=== PATIENT | female | born 2000 | race Caucasian/White ===

== ENCOUNTER 2020-11-07 21:53 | Emergency (ER) | payer BC ==
[2020-11-07 21:58] VITALS: BP 125/71; PULSE 113; RESP 18; TEMP 98.4
[2020-11-07] MEDS ORDERED: ACETAMINOPHEN TAB 500 MG TAB PO STA (22:07)
[2020-11-07] MEDS ORDERED: IBUPROFEN 600 MG STARTER PACK 4 TAB BTL PO STA (22:07)
--- NOTE | 2020-11-07 22:33 | XR ---
EXAMINATION TYPE: XR foot complete RT DATE OF EXAM: 11/07/2020 COMPARISON: NONE HISTORY: Ankle pain TECHNIQUE: 3 views FINDINGS: Metatarsals are intact. There is nondisplaced transverse fracture across the base of the fi fth metatarsal. The toes appear intact. The hindfoot is intact. IMPRESSION: Acute transverse fracture base of the fifth metatarsal.
--- NOTE | 2020-11-07 22:54 | ED ---
Lower Extremity Injury HPI - General Chief Complaint: Extremity Injury, Lower Stated Complaint: RT ankle pain Time Seen by Provider: 11/07/20 22:03 Source: patient Mode of arrival: wheelchair Limitations: no limitations - History of Present Illness Initial Comments: 19 year-old female patient presents to the emergency department for evaluation of right foot pain. Patient states about an hour prior to arrival she was walking and her foot slipped out of her shoe. States that her foot rolled laterally. States she has been having pain and swelling to the right lateral foot since. Denies any ankle pain. Is numbness or tingling to the foot. Denies falling or sustaining any other injuries with this. Denies taking any medication for pain. Denies chance of . Patient denies any headache, neck pain, back pain, chest pain, shortness of breath, dizziness, weakness, abdominal pain, nausea, vomiting, or difficulties with bowel movements or ur ination. - Related Data Previous Rx's Medication Instructions Recorded Ibuprofen [Motrin] 600 mg PO Q8HR PRN #30 tab 11/07/20 Allergies Allergy/AdvReac Type Severity Reaction Status Date / Time No Known Allergies Allergy Verified 11/07/20 22:10 Review of Systems ROS Statement: Those systems with pertinent positive or pertinent negative responses have been documented in the HPI. ROS Other: All systems not noted in ROS Statement are negative. Past Medical History Past Medical History: No Reported History History of Any Multi-Drug Resistant Organisms: None Reported Past Surgical History: Tonsillectomy Past Psychological History: No Psychological Hx Reported Smoking Status: Never smoker Past Alcohol Use History: Occasional General Exam Limitations: no limitations General appearance: alert, in no apparent distress, other (This is a well developed, well nourished adult female in no acute distress. Vital signs upon presentation are temperature 98.4F, pulse 113, respirations 18, blood pressure 125/71, pulse ox 100% on room air.) Eye exam: Present: normal appearance, PERRL, EOMI. Absent: scleral icterus, conjunctival injection, periorbital swelling ENT exam: Present: normal exam, normal oropharynx, mucous membranes moist Respiratory exam: Present: normal lung sounds bilaterally. Absent: respiratory distress, wheezes, rales, rhonchi, stridor Cardiovascular Exam: Present: regular rate, normal rhythm, normal heart sounds. Absent: systolic murmur, diastolic murmur, rubs, gallop, clicks Extremities exam: Present: full ROM, normal capillary refill, other (There is soft tissue swelling and tenderness over the proximal fifth metatarsal. Skin to the foot is otherwise pink, warm, dry. Cap refill less than 3 seconds. Pedal and posttibial pulses 2+ and equal bilaterally.). Absent: normal inspection, tenderness, pedal edema, joint swelling, calf tenderness Neurological exam: Present: alert, oriented X3, CN II-XII intact Psychiatric exam: Present: normal affect, normal mood Skin exam: Present: warm, dry, intact, normal color. Absent: rash Course Vital Signs 11/07/20 21:55 Temperature 98.4 F Pulse Rate 113 H Respiratory 18 Rate Blood Pressure 125/71 O2 Sat by Pulse 100 Oximetry Medical Decision Making - Medical Decision Making 19-year-old female patient presents to the emergency department today for evaluation of right foot pain. Physical examination did reveal soft tissue swelling and tenderness over the right proximal fifth metatarsal. Neurovascular status is intact. X-rays were obtained and did show a transverse fracture to the base of the right fifth metatarsal. Patient was placed in an OCL splint. She is instructed to remain nonweightbearing. She is given prescription for crutches and ibuprofen. She is educated regarding rest, ice, elevation. She is instructed to follow-up with human services program specialist tomorrow. Return parameters were discussed in detail. She verbalizes understanding and agrees with this plan. Case discussed with my attending Dr. Treviño. - Radiology Data Radiology results: report reviewed, image reviewed 3 views of the right foot are obtained. Report reviewed in its entirety. Impression by Dr. San shows acute transverse fracture base of the fifth metatarsal Disposition Clinical Impression: Nondisplaced fracture of fifth right metatarsal bone Disposition: HOME SELF-CARE Condition: Good Instructions (If sedation given, give patient instructions): Toe Fracture (ED), Splint Care (ED) Additional Instructions: Follow-up with human services program specialist for further evaluation as soon as possible, call first thing in the morning for an appointment. Do not remove splint until instructed to do so by orthopedics. Do not bear any weight on the right foot. Take medications as directed for pain. Rest, ice, elevate the foot. Return to the emergency department for any new, worsening, or concerning symptoms. Prescriptions: Ibuprofen [Motrin] 600 mg PO Q8HR PRN #30 tab PRN Reason: Pain Is patient prescribed a controlled substance at d/c from ED?: No Referrals: Demetrio Sow MD [Primary Care Provider] - 1-2 days Sam Engle DO [Doctor of Osteopathic Medicine] - 1-2 days Time of Disposition: 22:54
== END 2020-11-07 23:15 | disposition home or self-care (01) ==
LOC: EC 21:53
DX: S92.354A Nondisplaced fracture of fifth metatarsal bone, right foot, initial encounter for closed fracture (principal); Z90.09 Acquired absence of other part of head and neck; X50.9XXA Other and unspecified overexertion or strenuous movements or postures, initial encounter; Y93.01 Activity, walking, marching and hiking

== ENCOUNTER 2024-01-26 11:28 | Emergency (ER) | payer BC ==
--- NOTE | 2024-01-26 12:23 | ED ---
Abdominal Pain HPI - General Chief Complaint: Abdominal Pain Stated Complaint: Abd Pain, 19 wks Time Seen by Provider: 01/26/24 11:48 Source: patient, RN notes reviewed Mode of arrival: ambulatory Limitations: no limitations - History of Present Illness Initial Comments: 23-year-old G1, P0 female at 19 weeks gestation presenting for suprapubic cramping. States that 4 days ago she had a brief episode of cramping in the suprapubic area after urination. She describes the incident as "feeling like her muscles were pulling". She had a similar brief episode this morning but states it was more mild. She also noticed a small amount of blood on the toilet paper this morning when she wiped. She has had no complications so far in the , is following with an OB at [facility], however she states she has a history of fatty liver disease and is following with a physician for this to monitor it during . Denies fever, nausea, vomiting, dysuria, urinary urgency. - Related Data Previous Rx's Medication Instructions Recorded Ibuprofen [Motrin] 600 mg PO Q8HR PRN #30 tab 11/07/20 Allergies Allergy/AdvReac Type Severity Reaction Status Date / Time No Known Allergies Allergy Verified 01/26/24 11:37 Review of Systems ROS Statement: Those systems with pertinent positive or pertinent negative responses have been documented in the HPI. ROS Other: All systems not noted in ROS Statement are negative. Past Medical History Past Medical History: No Reported History History of Any Multi-Drug Resistant Organisms: None Reported Past Surgical History: Tonsillectomy Past Psychological History: No Psychological Hx Reported Smoking Status: Never smoker Past Alcohol Use History: Occasional Past Drug Use History: None Reported General Exam Limitations: no limitations General appearance: alert, in no apparent distress Respiratory exam: Present: normal lung sounds bilaterally. Absent: respiratory distress, wheezes, rales, rhonchi, stridor Cardiovascular Exam: Present: regular rate, normal rhythm, normal heart sounds. Absent: systolic murmur, diastolic murmur, rubs, gallop, clicks GI/Abdominal exam: Present: soft, normal bowel sounds. Absent: distended, tenderness, guarding, rebound, rigid Neurological exam: Present: alert, oriented X3, CN II-XII intact Psychiatric exam: Present: normal affect, normal mood Skin exam: Present: warm, dry, intact, normal color. Absent: rash Course Vital Signs 01/26/24 01/26/24 11:34 16:30 Temperature 98.2 F 98.2 F Pulse Rate 131 H 80 Respiratory 18 18 Rate Blood Pressure 135/84 135/84 O2 Sat by Pulse 100 100 Oximetry Medical Decision Making - Medical Decision Making Was pt. sent in by a medical professional or institution (, SHAI, SHADE MATCHER, urgent care, hospital, or long term...) When possible be specific @ -No Did you speak to anyone other than the patient for history (EMS, parent, family, police, friend...)? What history was obtained from this source @ -No Did you review nursing and triage notes (agree or disagree)? Why? @ -I reviewed and agree with nursing and triage notes Were old charts reviewed (outside hosp., previous admission, EMS record, old EKG, old radiological studies, urgent care reports/EKG's, long term records)? Report findings @ -No old charts were reviewed Differential Diagnosis (chest pain, altered mental status, abdominal pain women, abdominal pain men, vaginal bleeding, weakness, fever, dyspnea, syncope, headache, dizziness, GI bleed, back pain, seizure, CVA, palpatations, mental health, musculoskeletal)? @ -Differential Vaginal Bleeding: Spontaneous , threatened , molar , ectopic , bloody show, incompetent cervix, abruptioplacenta, placenta previa, uterine rupture, dysfunctional uterine bleeding, hemorrhage, uterine fibroids, this is not meant to be an all-inclusive list. EKG interpreted by me (3pts min.). @ -None X-rays interpreted by me (1pt min.). @ -None done CT interpreted by me (1pt min.). @ -None done U/S interpreted by me (1pt. min.). @ -Ultrasound revealed single live gestation estimating age 18 weeks 3 days with low-lying placenta What testing was considered but not performed or refused? (CT, X-rays, U/S, labs)? Why? @ -None What meds were considered but not given or refused? Why? @ -None Did you discuss the management of the patient with other professionals (professionals i.e. , SHAI, SHADE MATCHER, lab, RT, psych nurse, director social service, motorcoach driver, teacher, sheriffs officer, home health care case manager)? Give summary @ -No Was smoking cessation discussed for >3mins.? @ -No Was critical care preformed (if so, how long)? @ -No Were there social determinants of health that impacted care today? How? (Homelessness, low income, unemployed, alcoholism, drug addiction, transportation, low edu. Level, literacy, decrease access to med. care, fpc, rehab)? @ -No Was there de-escalation of care discussed even if they declined (Discuss DNR or withdrawal of care, Hospice)? DNR status @ -No What co-morbidities impacted this encounter? (DM, HTN, Smoking, COPD, CAD, Cancer, CVA, ARF, Chemo, Hep., AIDS, mental health diagnosis, sleep apnea, morbid obesity)? @ -None Was patient admitted / discharged? Hospital course, mention meds given and route, prescriptions, significant lab abnormalities, going to OR and other pertinent info. @ -Patient was discharged. Patient was seen and evaluated for abdominal cramping and vaginal bleeding at 19 weeks gestation. Ultrasound revealed single live gestation estimated 18 weeks 3 days with low-lying placenta. Lab work largely unremarkable, beta-hCG level compatible with estimated gestational age. Blood type is O-. Urine is unremarkable. Discussed diagnosis of threatened with patient. Advised close follow-up with OB in the next 48 hours for repeat beta hCG testing. RhoGAM injection given as patient is O-. Strict return/alarm symptoms discussed with patient and patient shows understanding and agrees to plan. Patient is discharged in stable condition. Case discussed with Dr. Hernandez. Undiagnosed new problem with uncertain prognosis? @ -No Drug Therapy requiring intensive monitoring for toxicity (Heparin, Nitro, Insulin, Cardizem)? @ -No Were any procedures done? @ -No Diagnosis/symptom? @ -Threatened Acute, or Chronic, or Acute on Chronic? @ -Acute Uncomplicated (without systemic symptoms) or Complicated (systemic symptoms)? @ -Uncomplicated Side effects of treatment? @ -No Exacerbation, Progression, or Severe Exacerbation? @ -No Poses a threat to life or bodily function? How? (Chest pain, [place], [place], pneumonia, PE, COPD, DKA, ARF, appy, cholecystitis, CVA, Diverticulitis, Homicidal, Suicidal, threat to staff... and all critical care pts) @ -No - Lab Data Result diagrams: 01/26/24 12:42 01/26/24 12:42 Lab Results 01/26/24 01/26/24 01/26/24 Range/Units 12:20 12:40 12:42 WBC 11.6 H (3.8-10.6) k/uL RBC 4.50 (3.80-5.40) m/uL Hgb 12.1 (11.4-16.0) gm/dL Hct 36.2 (34.0-46.0) % MCV 80.5 (80.0-100.0) fL MCH 27.0 (25.0-35.0) pg MCHC 33.5 (31.0-37.0) g/dL RDW 14.4 (11.5-15.5) % Plt Count 230 (150-450) k/uL MPV 8.1 Neutrophils % 77 % Lymphocytes % 17 % Monocytes % 5 % Eosinophils % 0 % Basophils % 0 % Neutrophils # 8.9 H (1.3-7.7) k/uL Lymphocytes # 2.0 (1.0-4.8) k/uL Monocytes # 0.5 (0-1.0) k/uL Eosinophils # 0.0 (0-0.7) k/uL Basophils # 0.0 (0-0.2) k/uL Sodium (137-145) mmol/L Potassium (3.5-5.1) mmol/L Chloride (98-107) mmol/L Carbon Dioxide (22-30) mmol/L Anion Gap mmol/L BUN (7-17) mg/dL Creatinine (0.52-1.04) mg/dL Est GFR (CKD-EPI)AfAm (>60 ml/min/1.73 sqM) Est GFR (CKD-EPI)NonAf (>60 ml/min/1.73 sqM) Glucose (74-99) mg/dL Calcium (8.4-10.2) mg/dL Total Bilirubin (0.2-1.3) mg/dL AST (14-36) U/L ALT (4-34) U/L Alkaline Phosphatase (38-126) U/L Total Protein (6.3-8.2) g/dL Albumin (3.5-5.0) g/dL HCG, Quant mIU/mL Urine Color Urine Appearance (Clear) Urine pH (5.0-8.0) Ur Specific [place] (1.001-1.035) Urine Protein (Negative) Urine Glucose (UA) (Negative) Urine Ketones (Negative) Urine Blood (Negative) Urine Nitrite (Negative) Urine Bilirubin (Negative) Urine Urobilinogen (<2.0) mg/dL Ur Leukocyte Esterase (Negative) Blood Type Blood Type Confirm O Negative Blood Type Recheck Bld Type Recheck Status Antibody Screen NEGATIVE 01/26/24 01/26/24 01/26/24 Range/Units 12:42 12:42 12:42 WBC (3.8-10.6) k/uL RBC (3.80-5.40) m/uL Hgb (11.4-16.0) gm/dL Hct (34.0-46.0) % MCV (80.0-100.0) fL MCH (25.0-35.0) pg MCHC (31.0-37.0) g/dL RDW (11.5-15.5) % Plt Count (150-450) k/uL MPV Neutrophils % % Lymphocytes % % Monocytes % % Eosinophils % % Basophils % % Neutrophils # (1.3-7.7) k/uL Lymphocytes # (1.0-4.8) k/uL Monocytes # (0-1.0) k/uL Eosinophils # (0-0.7) k/uL Basophils # (0-0.2) k/uL Sodium 135 L (137-145) mmol/L Potassium 3.9 (3.5-5.1) mmol/L Chloride 110 H (98-107) mmol/L Carbon Dioxide 18 L (22-30) mmol/L Anion Gap 7 mmol/L BUN 5 L (7-17) mg/dL Creatinine 0.38 L (0.52-1.04) mg/dL Est GFR (CKD-EPI)AfAm >90 (>60 ml/min/1.73 sqM) Est GFR (CKD-EPI)NonAf >90 (>60 ml/min/1.73 sqM) Glucose 87 (74-99) mg/dL Calcium 10.3 H (8.4-10.2) mg/dL Total Bilirubin 0.3 (0.2-1.3) mg/dL AST 20 (14-36) U/L ALT 17 (4-34) U/L Alkaline Phosphatase 51 (38-126) U/L Total Protein 6.2 L (6.3-8.2) g/dL Albumin 3.4 L (3.5-5.0) g/dL HCG, Quant 63136.3 mIU/mL Urine Color Colorless Urine Appearance Clear (Clear) Urine pH 6.5 (5.0-8.0) Ur Specific [place] 1.002 (1.001-1.035) Urine Protein Negative (Negative) Urine Glucose (UA) Negative (Negative) Urine Ketones Negative (Negative) Urine Blood Negative (Negative) Urine Nitrite Negative (Negative) Urine Bilirubin Negative (Negative) Urine Urobilinogen <2.0 (<2.0) mg/dL Ur Leukocyte Esterase Negative (Negative) Blood Type O Negative Blood Type Confirm Blood Type Recheck No Previous Record Bld Type Recheck Status CABO Indicated Antibody Screen Disposition Clinical Impression: Threatened Disposition: HOME SELF-CARE Condition: Stable Instructions (If sedation given, give patient instructions): Threatened Miscarriage (ED) Additional Instructions: Please follow-up with OB in 1 to 3 days. Please return to the Emergency Department if symptoms worsen or any other concerns. Is patient prescribed a controlled substance at d/c from ED?: No Referrals: Demetrio Sow MD [Primary Care Provider] - 1-2 days Time of Disposition: 15:12
[2024-01-26 13:09] LABS: Basophils % (A) 0 %; Eosinophils % (A) 0 %; HCT 36.2 % (34.0-46.0); HGB 12.1 gm/dL (11.4-16.0); Lymphocytes % (A) 17 %; MCHC 33.5 g/dL (31.0-37.0); MCV 80.5 fL (80.0-100.0); Mean Platelet Volume 8.1; Monocytes # (A) 0.5 k/uL (0-1.0); Monocytes % (A) 5 %; Neutrophils # (A) 8.9 k/uL (1.3-7.7); Neutrophils % (A) 77 %; Platelet Count 230 k/uL (150-450); RDW 14.4 % (11.5-15.5); WBC 11.6 k/uL (3.8-10.6)
[2024-01-26 13:11] VITALS: BP 135/84; RESP 18; TEMP 98.2
[2024-01-26 13:16] LABS: Appearance,Urine Clear (Clear); Bilirubin,Urine Negative (Negative); Blood,Urine Negative (Negative); Color,Urine Colorless; Glucose,Urine (UA) Negative (Negative); Ketones,Urine Negative (Negative); Leukocyte Esterase,Urine Negative (Negative); Nitrite,Urine Negative (Negative); PH, Urine 6.5 (5.0-8.0); Protein,Urine Negative (Negative); Specific Gravity,Urine 1.002 (1.001-1.035); Urobilinogen,Urine <2.0 mg/dL (<2.0)
[2024-01-26 13:19] LABS: ALT 17 U/L (4-34); AST 20 U/L (14-36); African American GFR (CKD) >90 (>60 ml/min/1.73 sqM); Albumin 3.4 g/dL (3.5-5.0); Alkaline Phosphatase 51 U/L (38-126); Blood Urea Nitrogen 5 mg/dL (7-17); Calcium 10.3 mg/dL (8.4-10.2); Carbon Dioxide 18 mmol/L (22-30); Chloride 110 mmol/L (98-107); Glucose 87 mg/dL (74-99); Non-African American GFR(CKD) >90 (>60 ml/min/1.73 sqM); Total Bilirubin 0.3 mg/dL (0.2-1.3); Total Protein 6.2 g/dL (6.3-8.2)
[2024-01-26 13:23] LABS: Anion Gap 7 mmol/L; Potassium 3.9 mmol/L (3.5-5.1); Sodium 135 mmol/L (137-145)
[2024-01-26 14:15] LABS: HCG,Quantitative Serum 56605.3 mIU/mL
--- NOTE | 2024-01-26 14:50 | US ---
EXAMINATION TYPE: US OB >= 14 wk fetus DATE OF EXAM: 01/26/2024 COMPARISON: None CLINICAL INDICATION: Female, 23 years old with history of suprapubic cramping, 19 weeks gestation; Cr amping. G1. TECHNIQUE: Transabdominal (TA) GESTATIONAL AGE / DATING Physician Established: (19 weeks/1 day) EDC: 06/20/2024 Dates by LMP: Unknown per patient Dates by First Scan: This is first scan at this facility Dates by Current Scan: (18 weeks/3 days) EDC: 06/25/2024 SURVEY IUP: Single PLACENTA: Posterior PREVIA: Appeared to be low lying at start of exam measuring 1.8 cm from internal os. With bladder mo re distended at end of exam, placental edge measured 2.7 cm from internal os. Consider reevaluation on follow up exam. MARQUES: 15.7 cm Normal CERVICAL LENGTH (transabdominal: norm > 3.0cm): 3.3 cm BIOMETRY PRESENTATION: Breech BPD: 3.73 cm 17 weeks / 3 days HC: 15.06 cm 18 weeks / 1 day AC: 13.97 cm 19 weeks / 3 days FL: 2.97 cm 19 weeks / 1 day ESTIMATED WEIGHT IN GRAMS: 272.94 grams ESTIMATED WEIGHT IN LBS/OZ: 0 lbs. 10 oz. WEIGHT PERCENTAGE BASED ON ESTABLISHED DATES: 41.7% HC/AC: 1.08 Normal FL/AC: 21.23 HEART RATE: 158 bpm RHYTHM: Normal MATERNAL WALL MEASUREMENT: 3.6 cm from skin to anterior uterine wall. *Exam is limited due to body habitus. IMPRESSION: 1. Single live anterior and gestation ultrasound age 18 weeks 3 days. 2. Low-lying placenta surveillance recommended on an follow-up exams.
[2024-01-26] MEDS: Rhogam IMMUNE GLOBULIN 1,500 UNIT/1 ML IM ONE (16:12)
[2024-01-26 17:17] VITALS: PULSE 80
== END 2024-01-26 16:31 | disposition home or self-care (01) ==
LOC: EC 11:28
DX: O20.0 Threatened abortion (principal); Z3A.19 19 weeks gestation of pregnancy
CPT/HCPCS: 36415; 86900; 86901; 80053; 85025; 86850; 81003; 84702; 76805; 99284; 96372; J2790